=== PATIENT | female | born 1940 | race Caucasian/White ===

== ENCOUNTER → 2017-03-25 | Outpatient (CLI) | payer OTHER ==
[~2017-03-25] MED LIST: ADVAIR HFA120 INHALA IH; ALBUTEROL SULF8.5 GM IH; APRESOLINE50 MG PO; ARANESP60 MCG/0.3 SC; ASPIR 8181 M1 PO; Aspirin E.C. PO; BENADRYL25 MG PO; CALCITRIOL0.25 MCG PO; CALCIUM ACETAT667 M2 PO; CALCIUM ACETAT667 MG PO; Cozaar PO; DELFLEX PD; DIALYVITE 3,001 EACH PO; ELIQUIS2.5 MG PO; ENDOCET 5-3251 EACH PO; FUROSEMIDE80 MG PO; HYDRALAZINE HCL10 MG PO; LANTUS 10100 UNITS/ SC; LANTUS 3 M100 UNITS1 SC; LASIX40 MG PO; LOSARTAN POTASS50 MG PO; Levaquin PO; Lopressor PO; METOLAZONE2.5 MG PO; METOPROLOL TART50 MG PO; MIRALAX255 GM PO; NEPHRO-VITE,1 TABLET PO; NIFEDIPINE ER60 MG PO; Norvasc PO; OXYCODONE HCL5 MG PO; OXYCONTIN10 MG PO; PRAVASTATIN SOD10 MG PO; RENVELA800 MG PO; SENNA PLUS TAB1 EACH PO; SENSIPAR60 MG PO; TRAMADOL HCL50 MG PO; TYLENOL EXTRA500 MG PO; VALACYCLOVIR500 MG PO; VELPHORO500 MG PO; VITAMIN D250000 UNIT PO; VITAMIN D31000 UNIT PO; ZETIA10 MG PO; ZOFRAN4 MG PO; [UNRECOGNIZED DRUG - OTHER] PD
== END | disposition home or self-care (01) ==
LOC: RAD 13:48
PROC: 3E0R3KZ Introduction of Other Diagnostic Substance into Spinal Canal, Percutaneous Approach (ICD-10-PCS; principal; 2017-03-25)
DX: M46.92 Unspecified inflammatory spondylopathy, cervical region (principal); M47.812 Spondylosis without myelopathy or radiculopathy, cervical region; M19.019 Primary osteoarthritis, unspecified shoulder; M54.12 Radiculopathy, cervical region; M25.9 Joint disorder, unspecified; N18.9 Chronic kidney disease, unspecified
CPT/HCPCS: 62302; 72126